=== PATIENT | male | born 2000 | race Caucasian/White ===

== ENCOUNTER 2018-03-21 02:36 | Emergency (ER) | payer BC | END 2018-03-21 02:45 | disposition left against medical advice (07) | LOC: ER 02:36 | DX: Z53.21 Procedure and treatment not carried out due to patient leaving prior to being seen by health care provider (principal) ==

== ENCOUNTER 2018-03-29 10:15 | Day surgery (SDC) | payer BC ==
[~2018-03-29] VITALS: Ht 182.9 cm; Wt 76.0 kg
[2018-03-29] MEDS ORDERED: Percocet 10-321 EACH PO (11:34)
[2018-03-29] MEDS ORDERED: Percocet 5-3251 EACH PO (11:34)
== END 2018-03-29 14:44 | disposition home or self-care (01) ==
LOC: ORSCSDS 10:15
PROVIDERS: Otolaryngology
PROC: 0NSVXZZ Reposition Left Mandible, External Approach (ICD-10-PCS; principal; 2018-03-29 12:00)
PROC: 2W31X9Z Immobilization of Face using Wire (ICD-10-PCS; principal; 2018-03-29 12:00)
DX: S02.69XB Fracture of mandible of other specified site, initial encounter for open fracture (principal); Y04.2XXA Assault by strike against or bumped into by another person, initial encounter; F17.210 Nicotine dependence, cigarettes, uncomplicated
CPT/HCPCS: C1713; J0171; J1100; J1885; J2250; J2405; J2710; J3010; J7120

== ENCOUNTER → 2018-09-23 | Outpatient (CLI) | payer BC ==
[~2018-09-23] MED LIST: Percocet 10-321 EACH PO; Percocet 5-3251 EACH PO
== END | disposition home or self-care (01) ==
LOC: LAB EV 15:02 → LAB SHORT 15:02
DX: J32.9 Chronic sinusitis, unspecified (principal)
CPT/HCPCS: 87070; 87075; 87205